=== PATIENT | female | born 2000 | race American Indian/Alaskan Native ===

== ENCOUNTER 2019-03-17 01:55 | Emergency (ER) | payer MEDICAID ==
[~2019-03-17] VITALS: Ht 167.6 cm; Wt 88.6 kg
[~2019-03-17 01:55] MED LIST: FLUT16SP2 BOTHNARES; IBUP-1985 PO; ONDA4TAB12 PO
[2019-03-17] MEDS ORDERED: BENZ-16 PO (03:19)
[2019-03-17 03:29] VITALS: BP 113/70
== END 2019-03-17 03:33 | disposition home or self-care (01) ==
LOC: ER 01:56
DX: J06.9 Acute upper respiratory infection, unspecified (principal); B34.9 Viral infection, unspecified; Z79.899 Other long term (current) drug therapy
CPT/HCPCS: 99283